=== PATIENT | male | born 1980 | race Caucasian/White ===

== ENCOUNTER 2021-02-24 19:16 | Emergency (ER) | payer OTHER ==
[~2021-02-24] VITALS: Ht 172.7 cm; Wt 69.4 kg
[2021-02-24 20:08] VITALS: BP 149/94
[2021-02-24] MEDS ORDERED: DIPH25CA83 PO (20:34)
[2021-02-24] MEDS ORDERED: FAMO-131 PO (20:34)
[2021-02-24] MEDS ORDERED: FAMOTIDINE (20 MG) 20 MG TABLET ONE (20:44)
--- NOTE | 2021-02-24 20:44 | NUR ---
Patient discharged to home in stable condition. Written and verbal after care instructions given. Patient verbalizes understanding of instruction.
[2021-02-24] MEDS ORDERED: FAMOTIDINE (20 MG) 20 MG TABLET PO ONE (21:00)
== END 2021-02-24 20:44 | disposition home or self-care (01) ==
LOC: ER 19:19
DX: T78.1XXA Other adverse food reactions, not elsewhere classified, initial encounter (principal); J45.909 Unspecified asthma, uncomplicated; Z88.0 Allergy status to penicillin; Z88.1 Allergy status to other antibiotic agents; Z79.899 Other long term (current) drug therapy; X58.XXXA Exposure to other specified factors, initial encounter